=== PATIENT | male | born 1950 | race Caucasian/White ===

== ENCOUNTER → 2016-08-10 | Outpatient (CLI) | payer OTHER ==
[~2016-08-10] MED LIST: ALPR0.25 PO; AMIO400T4 PO; ASCO500T29 PO; ASPI-496 PO; ATOR20TA9 PO; CARV6.252 PO; CHOL20003 PO; CLOP75TA PO; DILT120T3 PO; DOCU100C8 PO; FLUT16SP2 NAS; FURO-92 PO; GLYB5TAB3 PO; LEVO150T5 PO; LOSA25TA5 PO; LOSA50TA6 PO; LOVA10TA PO; METF10002 PO; MV M PO; OMEP40CA3 PO; OXYC-302 PO; OXYC10TA32 PO; POTA20TA14 PO; PRAS50CA PO; TAMS-11 PO; THYR16.2 PO
== END | disposition home or self-care (01) ==
LOC: CFH 14:40
PROVIDERS: ATTEND Nurse Practitioner Primary Care
DX: N63 Unspecified lump in breast (principal); R22.32 Localized swelling, mass and lump, left upper limb; E11.65 Type 2 diabetes mellitus with hyperglycemia; E03.9 Hypothyroidism, unspecified; E78.2 Mixed hyperlipidemia; K21.9 Gastro-esophageal reflux disease without esophagitis; I10 Essential (primary) hypertension; Z87.891 Personal history of nicotine dependence; Z95.1 Presence of aortocoronary bypass graft